=== PATIENT | female | born 1950 | race Caucasian/White ===

== ENCOUNTER 2017-02-25 22:14 | Emergency (ER) | payer OTHER ==
[2017-02-26] MEDS: hydrALAzine 20 MG INJ IV ×2 (02:36)
[2017-02-26 02:46] LABS: ADD MAN DIFF? NO
[2017-02-26 02:58] LABS: BASOPHILS % 0.3 % (0.0-2.0); EOSINOPHILS # 0.1 10^3/ul (0.0-0.5); EOSINOPHILS % 0.8 % (0.0-7.0); HEMATOCRIT 43.1 % (37.0-47.0); HEMOGLOBIN 14.2 g/dl (12.0-16.0); LYMPHOCYTES # 2.6 10^3/ul (0.8-2.9); LYMPHOCYTES % 23.9 % (15.0-51.0); MEAN CORPUSCULAR HEMOGLOBIN 28.6 pg (29.0-33.0); MEAN CORPUSCULAR HGB CONC 32.9 g/dl (32.0-37.0); MEAN CORPUSCULAR VOLUME 86.7 fl (82.0-101.0); MEAN PLATELET VOLUME 9.5 fl (7.4-10.4); MONOCYTE # 0.7 10^3/ul (0.3-0.9); MONOCYTES % 6.8 % (0.0-11.0); NEUTROPHIL # 7.3 10^3/ul (1.6-7.5); NEUTROPHILS % 67.6 % (39.0-77.0); PLATELET COUNT 329 10^3/UL (140-415); RED BLOOD COUNT 4.97 10^6/ul (4.20-5.40)
[2017-02-26 02:58] LABS: WHITE BLOOD COUNT 10.8 10^3/ul (4.8-10.8)
[2017-02-26 03:29] LABS: ALANINE AMINOTRANSFERASE 32 IU/L (13-69); ALBUMIN 4.7 g/dl (3.3-4.9); ALBUMIN/GLOBULIN RATIO 1.23; ALKALINE PHOSPHATASE 172 IU/L (42-121); ANION GAP 16 (8-16); ASPARTATE AMINO TRANSFERASE 28 IU/L (15-46); BLOOD UREA NITROGEN 12 mg/dl (7-20); CALCIUM 9.3 mg/dl (8.4-10.2); CARBON DIOXIDE 28 mmol/L (21-31); CHLORIDE 105 mmol/L (97-110); CREATININE 0.65 mg/dl (0.44-1.00); GLUCOSE 132 mg/dl (70-220); POTASSIUM 4.2 mmol/L (3.5-5.1); SODIUM 145 mmol/L (135-144); TOTAL PROTEIN 8.5 g/dl (6.1-8.1)
[2017-02-26] MEDS: LORAZEPAM 2 MG INJ IV ×2 (03:39)
[2017-02-26 03:40] LABS: B-TYPE NATRIURETIC PEPTIDE 74 PG/ML (0-125)
[2017-02-26 03:44] LABS: TROPONIN-I < 0.012 ng/ml (0.00-0.12)
[2017-02-26] MEDS: SOD CHLORIDE 0.45% 1,000 ML IV ×2 (05:51)
[2017-02-26] MEDS ORDERED: ONDANSETRON 4 MG INJ IV ×2 (06:00)
[2017-02-26] MEDS ORDERED: LORAZEPAM 0.5 MG TAB PO ×2 (06:00)
[2017-02-26] MEDS ORDERED: MAGNESIUM HYDROXIDE 30ML CUP PO ×2 (06:00)
[2017-02-26] MEDS ORDERED: HYDROCODONE/APAP (5/325) TAB PO ×2 (06:00)
[2017-02-26] MEDS ORDERED: NA PHOSPHATE/BIPHOS 133 ML ENEMA PR ×2 (06:00)
[2017-02-26] MEDS ORDERED: LORAZEPAM 2 MG INJ IV ×2 (06:00)
[2017-02-26] MEDS ORDERED: hydrALAzine 20 MG INJ IV ×2 (06:00)
[2017-02-26] MEDS ORDERED: NACL 0.9% 3 ML SYG IV ×2 (06:00)
[2017-02-26] MEDS ORDERED: ALBUTEROL/IPRATROPIUM (NEB) 3 ML AMP HHN ×2 (06:00)
[2017-02-26] MEDS ORDERED: DOCUSATE SODIUM 100 MG CAP PO ×2 (06:00)
[2017-02-26] MEDS ORDERED: NITROGLYCERIN (SL) 0.4 MG TAB SL ×2 (06:00)
[2017-02-26] MEDS ORDERED: morphine 2 MG INJ IV ×2 (06:00)
[2017-02-26] MEDS ORDERED: ACETAMINOPHEN 325 MG TAB PO ×2 (06:00)
[2017-02-26 07:46] LABS: CREATINE KINASE 38 IU/L (23-200)
[2017-02-26 07:59] LABS: CK INDEX 1.9; CK-MB 0.73 ng/ml (0.0-2.4)
[2017-02-26 08:00] LABS: TROPONIN-I < 0.012 ng/ml (0.00-0.12)
[2017-02-26 08:04] LABS: FREE T4 (FREE THYROXINE) 0.93 ng/dl (0.78-2.44)
[2017-02-26] MEDS: MULTIVITAMINS THERAPEUTIC TAB PO ×4 (08:17→08:29)
[2017-02-26] MEDS: PANTOPRAZOLE (EC) 40 MG TAB PO ×4 (08:18→08:27)
[2017-02-26] MEDS: ASPIRIN (EC) 325 MG TAB PO ×4 (08:19→08:28)
[2017-02-26] MEDS: LOSARTAN 50 MG TAB PO ×4 (08:21→08:27)
[2017-02-26] MEDS: HYDROCHLOROTHIAZIDE 12.5 MG CAP PO ×2 (08:28)
[2017-02-26] MEDS: CALCIUM/VITAMIN D (250/125) TAB PO ×2 (08:30)
[2017-02-26] MEDS: HEPARIN 5,000 UNIT/0.5 ML VIAL SC ×2 (08:30)
== END 2017-02-26 11:54 | disposition left against medical advice (07) ==
LOC: TEL 02-26 06:56 → FTE 22:14 → TEL 02-26 05:42 → E/R 02-26 11:54
DX: R07.9 Chest pain, unspecified (principal); I10 Essential (primary) hypertension; I16.0 Hypertensive urgency; R51 Headache; F41.9 Anxiety disorder, unspecified; E78.00 Pure hypercholesterolemia, unspecified; M19.90 Unspecified osteoarthritis, unspecified site; E78.5 Hyperlipidemia, unspecified
CPT/HCPCS: 36415; 70450; 71045; 80053; 82550; 82553; 83880; 84439; 84484; 85025; 93005; 96374; 96375; 99285-25; G0378